=== PATIENT | female | born 1995 | race Caucasian/White ===

== ENCOUNTER → 2023-12-23 08:34 | Outpatient (CLI) | payer OTHER, SELFPAY ==
--- NOTE | 2023-12-23 | DI.RAD.S_ITS ---
PROCEDURE: FL KNEE INJECTION MR/CT RT INDICATIONS: Pain in right knee COMPARISON: None. TECHNIQUE: The indications, alternatives, benefits, risks, and complications of the procedure were explained to the patient. Written informed consent was obtained and placed in the chart. The knee was examined fluoroscopically, and a site chosen for knee joint injection. The skin was prepped and draped in a sterile fashion, and 1% Lidocaine infiltrated from the skin down to the articular surface. A hypodermic needle was then introduced into the joint and iodinated contrast media was instilled to confirm the intra-articular needle tip placement. This was followed by approximately 20 mL dilute solution of a gadolinium containing MR contrast agent. The needle was removed and a bandage was applied. An Nick wrap was then applied around the knee joint to keep the contrast from collecting in the suprapatellar recess. The patient experienced no complications throughout the procedure and left the fluoroscopic suite in no apparent distress. FINDINGS: Single fluoroscopic spot image demonstrates intra-articular location to injected iodinated contrast. IMPRESSION: Successful fluoroscopically guided administration of dilute Gadolinium solution into the knee joint for MR arthrogram. Dictated by: Hay Benitez M.D. on 12/23/2023 at 11:22 Approved by: Hay Benitez M.D. on 12/23/2023 at 11:22
--- NOTE | 2023-12-23 | DI.MRI.S_ITS ---
PROCEDURE: MR KNEE RT W CON INDICATIONS: Pain in right knee TECHNIQUE: After the administration of 50 mL of dilute intra-articular Gadolinium contrast, sagittal T1 spin echo with fat saturation and PD fast spin echo with fat saturation, coronal T1 spin echo with and without fat saturation, coronal T2 fast spin echo with fat saturation, axial PD fast spin echo with fat saturation through the knee. COMPARISON: None. FINDINGS: Image quality: Excellent. Menisci: The medial and lateral menisci demonstrate normal morphology and internal signal. The meniscal root ligaments appear intact. Cruciate ligaments: The anterior cruciate ligament appears thickened with intrasubstance T2 hyperintense signal. The PCL is intact. Medial structures: The medial collateral ligament appears intact. Visualized portions of the pes anserinus tendons appear normal. No abnormal bursal fluid. Lateral structures: The lateral collateral ligament, long and short heads of the biceps femoris tendon appear intact. The popliteus tendon appears normal. Iliotibial band appears normal. Anterior structures: The quadriceps tendon is intact. Proximal patellar tendinosis at its inferior patellar insertion is seen. Patellar alignment is normal. No femoral trochlear dysplasia or ventral trochlear prominence. No edema in the infrapatellar fat pad. Bone and cartilage: There is low-grade chondromalacia patella. Edema involving posterior inferior aspect of lateral patella is seen without discrete fracture line or cortical disruption. No other area of abnormal marrow signal. Joint space: No Wiseman's cyst. Normal appearing synovial plicae are incidentally noted. No intra-articular bodies. IMPRESSION: 1. Low-grade chondromalacia patella. Osteochondral injury versus contusion involving inferior and lateral aspect of posterior patella. No other area of abnormal marrow signal. No displaced fracture or dislocation. No intra-articular loose bodies. 2. Thickened anterior cruciate ligament with intrasubstance T2 hyperintense signal suggestive of sprain/low-grade intrasubstance partial-thickness tear. No full-thickness ACL rupture. The PCL is intact. 3. Proximal patellar tendinosis at its inferior patellar insertion. The quadriceps tendon is intact. 4. No evidence of focal meniscal tear. Dictated by: Hay Benitez M.D. on 12/23/2023 at 12:55 Approved by: Hay Benitez M.D. on 12/23/2023 at 13:36
[2023-12-23] MEDS: LIDOCAINE 1% 20 ML INJ (09:23)
[2023-12-23] MEDS: SODIUM CHLORIDE 0.9 % 20 ML VIAL IV ×2 (09:24)
== END ==
PROVIDERS: Referring Provider Student in an Organized Health Care Education/Training Program; Visit Provider Student in an Organized Health Care Education/Training Program
DX: M22.41 Chondromalacia patellae, right knee (principal); M25.561 Pain in right knee
CPT/HCPCS: 27369; 73580; 73722; A9579; Q9967